=== PATIENT | female | born 1955 | race Caucasian/White ===

== ENCOUNTER → 2018-12-05 | Outpatient (CLI) | payer OTHER ==
[~2018-12-05] MED LIST: REGADENOSON 0.4 MG/5 ML DISP.SYRIN. IV ONE
--- NOTE | 2018-12-05 12:11 | PCVCIMAG ---
APPROVED REPORT Study performed: 12/05/2018 08:15:54 EXAM: Comprehensive 2D, Doppler, and color-flow Echocardiogram Patient Location: Echo lab Room #: 2Status: routine BSA: 1.71 HR: 56 bpmBP: 120/68 mmHg Rhythm: Bradycardia Other Information Study Quality: Good Risk Factors: Cardiac Risk Factors: Family Hx A Fib,CHF Indications CVA/TIA Dyspnea Chest Pain 2D Dimensions IVSd: 8.38 (7-11mm)LVOT Diam: 18.87 (18-24mm) LVDd: 46.32 mm PWd: 7.16 (7-11mm)Ascending Ao: 28.63 (22-36mm) LVDs: 30.35 (25-40mm) Left Atrium: 31.34 (27-40mm) Aortic Root: 23.66 mm LV Single Plane 4CH: 54.09 % LV Single Plane 2CH: 62.66 % Biplane EF: 60.2 % Volumes Left Atrial Volume (Systole) Single Plane 4CH: 31.95 mLSingle Plane 2CH: 31.04 mL Biplane LA Volume: 35.00 mLLA ESV Index: 20.00 mL/m2 Aortic Valve AoV Peak Leonidas.: 1.30 m/s AO Peak Gr.: 6.77 mmHgLVOT Max P.80 mmHg LVOT Max V: 1.10 m/s LULÚ Vmax: 2.35 cm2 AI Vmax: 4.59 m/s AI Cochran: 1.97 m/s2 AI PHT: 676.99 ms Mitral Valve E/A Ratio: 1.6 MV Decel. Time: 163.66 ms MV E Max Leonidas.: 0.71 m/s MV A Leonidas.: 0.44 m/s TDI E/Lateral E': 8.88E/Medial E': 7.89 Medial E' Leonidas.: 0.09 m/s Lateral E' Leonidas.: 0.08 m/s Pulmonary Valve PV Peak Leonidas.: 0.83 m/sPV Peak Gr.: 2.73 mmHg Pulmonary Vein P Vein S: 0.48 m/sP Vein A: 0.33 m/s P Vein D: 0.61 m/sP Vein A Dur.: 83.0 msec P Vein S/D Ratio: 0.79 Tricuspid Valve TR Peak Leonidas.: 2.33 m/s TR Peak Gr.: 21.68 mmHg TV Vmax: 0.68 m/sPA Pressure: 29.00 mmHg Left Ventricle The left ventricle is normal size. There is normal LV segmental wall motion. There is normal left ventricular wall thickness. Left ventricular systolic function is normal. The left ventricular ejection fraction is within the normal range. LVEF is 60%. The left ventricular diastolic function is normal. Right Ventricle The right ventricle is normal size. The right ventricular systolic function is normal. Atria The left atrium size is normal. There is no Doppler evidence for an atrial septal defect. The right atrium size is normal. Aortic Valve Aortic valve is trileaflet. Mild aortic valve sclerosis. Trace to mild aortic regurgitation. There is no aortic valvular stenosis. Mitral Valve The mitral valve is normal in structure. There is no mitral valve regurgitation noted. No evidence of mitral valve stenosis. Tricuspid Valve The tricuspid valve is normal in structure. Trace to mild tricuspid regurgitation with a PA pressure of 29 mmHg. No apparent pulmonary hypertension. Pulmonic Valve The pulmonary valve is normal in structure. There is no pulmonic valvular regurgitation. Great Vessels The aortic root is normal in size. The ascending aorta is normal in size. Aortic arch is normal in caliber. IVC is normal in size and collapses >50% with inspiration. Pericardium There is no pericardial effusion. There is no pleural effusion. <Conclusion> The left ventricle is normal size. LVEF is 60%. There is no Doppler evidence for an atrial septal defect. Aortic valve is trileaflet. Mild aortic valve sclerosis. Trace to mild aortic regurgitation. The mitral valve is normal in structure. The tricuspid valve is normal in structure. Trace to mild tricuspid regurgitation with a PA pressure of 29 mmHg. No apparent pulmonary hypertension. The pulmonary valve is normal in structure. There is no pericardial effusion.
--- NOTE | 2018-12-05 12:17 | PCVCIMAG ---
APPROVED REPORT Imaging Protocol: Rest Tc-99m/Stress Tc-99m 1 day Study performed: 12/05/2018 09:48:57 Indication: Chest pain, Dyspnea, Abn EKG Patient Location: Out-Patient Stress Nurse: Valencia Palm RN, Brittanie Morrison RN ME Tech:Brett Hines NMTCB Ht: 5 ft 5 in Wt: 143 lbs BSA: 1.72 m2 HR: 67 bpm BP: 144/87 mmHg BMI: 23.7 Rhythm: NSR Medical History Medical History: Age, CVD, Former Smoker Medications: No Cardiac Meds Allergies: Bactine Pretest Chest Pain Characteristics: No chest pain Exercise History: Physically active Resting Data Rest SPECT myocardial perfusion imaging was performed in supine position 45 minutes following the intravenous injection of 10.8 mCi of Tc-99m Sestamibi. Time of rest injection: 914 Date: 12/05/2018 Administration Route: IV Administration Site: Right AC Exercise Stress At peak stress, the patient was injected intravenously with 36mCi of Tc-99m Sestamibi. Time of stress injection: 1030 Date: 12/05/2018 Administration Route: IV Administration Site: Right AC Patient continued to exercise for 6 minute(s). Gated Stress SPECT was performed 45 minutes after stress injection. The images were gated to evaluate regional wall motion and calculate left ventricular ejection fraction. Stress Test Details Stress Test: Exercise stress testing was performed using a Rad protocol. HRMax Heart Rate (APMHR): 157 bpm Resting HR: 67 bpmTarget HR (85% APMHR): 133 bpm Max HR Achieved: 144 bpm % of APMHR: 91 Recovery HR: 78 bpm BP Resting BP: 144/87 mmHg Max BP: 178/79 mmHg Recovery BP: 143/65 mmHg ECG Resting ECG: Sinus Rhythm Stress ECG: Sinus Tachycardia Maximum ST Deviation: 0.45 mm Arrhythmia: PVC's Recovery ECG: Sinus Rhythm Clinical Reason for Termination: Maximal effort, Dyspnea Stress Symptoms: Dyspnea Exercise duration: 6 min 31 sec Exercise capacity: 8.5 METs Overall Exercise Capacity for Age: Average Angina Score: None Symptoms resolved during recovery. Stress ECG Conclusion 1. Subjectively negative for ischemia 2. Elective cardiographic C negative for ischemia 3. Reduced functional capacity Jordan Treadmill Score is 3.8 which is Moderate risk. Study Data Post stress, the left ventricular ejection was 81%.. SSS: 0 SRS: 0 SDS: 0 TID = 0.76. Perfusion There is a smallsmall area of moderately reduced uptake in the apical segment of the anterior wall which is seen on the stress images as well as the resting images. This area thickens and moves normallythickens and moves normally and is most consistent with attenuation artifact. Nuclear Conclusion ECG Findings: negative for ischemia Clinical Findings: negative for ischemia Nuclear Findings: negative for ischemia Exercise Capacity: reduced Left Ventricular Function: normal 1. Low risk study 2. Post exercise left ventricular ejection fraction: 81% without wall motion abnormalities Interpreted by: Niharika Antunez MD Electronically Approved: 12/05/2018 12:16:52 <Conclusion> 1. Subjectively negative for ischemia 2. Elective cardiographic C negative for ischemia 3. Reduced functional capacity
== END | disposition home or self-care (01) ==
LOC: PCVCIMAG 08:12
PROVIDERS: ATTEND Internal Medicine
DX: I08.2 Rheumatic disorders of both aortic and tricuspid valves (principal); Z88.5 Allergy status to narcotic agent
CPT/HCPCS: 78452; 93017; 93306; A9500; J2785